=== PATIENT | female | born 1980 | race American Indian/Alaskan Native ===

== ENCOUNTER 2020-08-13 04:29 | Emergency (ER) | payer MEDICAID ==
[2020-08-13 04:58] VITALS: BP 147/96
[2020-08-13] MEDS ORDERED: diphenhydrAMINE 25 MG CAP PO ONE (06:16)
[2020-08-13] MEDS ORDERED: METOCLOPRAMIDE 10 MG TAB PO ONE (06:16)
[2020-08-13] MEDS ORDERED: dexAMETHasone 20 MG/5 ML VIAL IM ONE (06:16)
[2020-08-13] MEDS ORDERED: ACETAMINOPHEN 500 MG TAB PO ONE (06:16)
--- NOTE | 2020-08-13 06:22 | Emergency Department Report ---
ED Headache HPI - General Chief Complaint: Headache Stated Complaint: HTN/HEADACHE - History of Present Illness Initial Comments: Patient is a 40-year-old female with a history of migraine headaches who presents for a frontal h as pain is in the same pace place and intensity eadache described as squeezing and pain sharp 5/10 intermittent for the past 5 days. This is typical development of headaches for this patient. Pain is in the same place and same intensity. There is no fever, chills, nausea vomiting, lightheadedness, no photophobia, no sinus pain or drainage. Patient states out of headache medication for the past year. Patient does endorse history of hypertension controlled with lisinopril. Patient has PCP Dr. Spence Allergies/Adverse Reactions: Allergies No Known Allergies Allergy (Unverified 08/13/20 05:01) Home Medications: Ambulatory Orders Acetaminophen [Acetaminophen TAB] 1,000 mg PO Q6HR PRN #30 tablet 08/13/20 Metoclopramide [Reglan] 10 mg PO Q6H PRN #30 tablet 08/13/20 diphenhydrAMINE [Benadryl CAP] 25 mg PO Q6HR PRN #30 capsule 08/13/20 lisinopriL [Zestril TAB] 20 mg PO QDAY #30 tablet 08/13/20 ED Review of Systems ROS: Stated complaint: HTN/HEADACHE Other details as noted in HPI Constitutional: denies: chills, fever Eyes: denies: eye pain, eye discharge, vision change ENT: denies: ear pain, throat pain Respiratory: denies: cough, shortness of breath, wheezing Cardiovascular: denies: chest pain, palpitations Endocrine: no symptoms reported Gastrointestinal: as per HPI. denies: abdominal pain, nausea, vomiting Genitourinary: denies: urgency, dysuria, discharge Musculoskeletal: denies: back pain, joint swelling, arthralgia Skin: denies: rash, lesions Neurological: headache. denies: numbness, paresthesias, confusion, vertigo Psychiatric: denies: anxiety, depression Hematological/Lymphatic: denies: easy bleeding, easy bruising ED Past Medical Hx - Past Medical History Previous Medical History?: Yes Hx Psychiatric Treatment: Yes (Bipolar, Schizophrenia) Hx Asthma: Yes - Surgical History Past Surgical History?: No - Social History Smoking Status: Never Smoker Substance Use Type: None - Medications Home Medications: Home Medications Medication Instructions Recorded Confirmed Last Taken Type Acetaminophen [Acetaminophen TAB] 1,000 mg PO Q6HR PRN #30 tablet 08/13/20 Unknown Rx Metoclopramide [Reglan] 10 mg PO Q6H PRN #30 tablet 08/13/20 Unknown Rx diphenhydrAMINE [Benadryl CAP] 25 mg PO Q6HR PRN #30 capsule 08/13/20 Unknown Rx lisinopriL [Zestril TAB] 20 mg PO QDAY #30 tablet 08/13/20 Unknown Rx ED Physical Exam - General Limitations: No Limitations General appearance: alert, in no apparent distress - Head Head exam: Present: atraumatic, normocephalic - Eye Eye exam: Present: PERRL, EOMI Pupils: Present: normal accommodation - ENT ENT exam: Present: normal exam, normal orophraynx, mucous membranes moist, TM's normal bilaterally, normal external ear exam - Neck Neck exam: Present: normal inspection, full ROM. Absent: tenderness, lymphadenopathy - Respiratory Respiratory exam: Present: normal lung sounds bilaterally. Absent: respiratory distress, wheezes, stridor, chest wall tenderness - Cardiovascular Cardiovascular Exam: Present: regular rate, normal rhythm, normal heart sounds. Absent: systolic murmur, diastolic murmur, rubs, gallop - GI/Abdominal GI/Abdominal exam: Present: soft, normal bowel sounds. Absent: distended, tenderness - Rectal Rectal exam: Present: deferred - Extremities Exam Extremities exam: Present: normal inspection, full ROM. Absent: tenderness - Back Exam Back exam: Present: normal inspection, full ROM. Absent: tenderness, CVA ten derness (R), CVA tenderness (L) - Neurological Exam Neurological exam: Present: alert, oriented X3, CN II-XII intact, normal gait, reflexes normal. Absent: motor sensory deficit - Expanded Neurological Exam Expanded Patient oriented to: Present: person, place, time Speech: Present: fluid speech Cranial nerves: EOM's Intact: Normal, Gag Reflex: Normal Motor strength exam: RUE: 5, LUE: 5, RLE: 5, LLE: 5 DTR: knee (R): 2+, knee (L): 2+ Best Eye Response ([place]): (4) open spontaneously Best Motor Response ([place]): (6) obeys commands Best Verbal Response ([place]): (5) oriented [place] Total: 15 - Psychiatric Psychiatric exam: Present: normal affect, normal mood - Skin Skin exam: Present: warm, dry, intact, normal color. Absent: rash ED Course Vital Signs 08/13/20 04:43 Temperature 98.3 F Pulse Rate 67 Respiratory 16 Rate Blood Pressure 147/96 O2 Sat by Pulse 98 Oximetry ED Medical Decision Making - Medical Decision Making This is a typical headache for this patient. Pain is improved with medication given in ED. Patient is reminded to take BP medications as prescribed. Patient does have lisinopril in her possession advised to take at this time. Patient is currently alert oriented x3. Patient is amatory with steady gait. There are no other neuro deficits. Patient will be DC'd home in stable condition at this time. Will follow up with primary care doctor in 2 to 3 days. Patient will return to ED should symptoms worsen. Critical care attestation.: If time is entered above; I have spent that time in minutes in the direct care of this critically ill patient, excluding procedure time. ED Disposition Clinical Impression: Headache Qualifiers: Headache type: unspecified Headache chronicity pattern: acute headache Intractability: not intractable Qualified Code(s): R51.9 - Headache, unspecified Disposition: DC-01 TO HOME OR SELFCARE Is pt being admited?: No Does the pt Need Aspirin: No Condition: Stable Prescriptions: Acetaminophen [Acetaminophen TAB] 1,000 mg PO Q6HR PRN #30 tablet PRN Reason: Headache diphenhydrAMINE [Benadryl CAP] 25 mg PO Q6HR PRN #30 capsule PRN Reason: Headache Metoclopramide [Reglan] 10 mg PO Q6H PRN #30 tablet PRN Reason: Headache lisinopriL [Zestril TAB] 20 mg PO QDAY #30 tablet Referrals: KESHAWN KOTHARI MD [Staff Physician] - 3-5 Days Forms: Work/School Release Form(ED) Time of Disposition: 06:27
--- NOTE | 2020-08-13 06:33 | XRay Report ---
CHEST 2 VIEWS INDICATION / CLINICAL INFORMATION: cough. COMPARISON: None available. FINDINGS: SUPPORT DEVICES: None. HEART / MEDIASTINUM: No significant abnormality. LUNGS / PLEURA: There are mild hazy bilateral pulmonary opacities with mid to lower lung zone predomi nance. No pleural effusion. No pneumothorax. ADDITIONAL FINDINGS: No significant additional findings. IMPRESSION: 1. Mild hazy bilateral pulmonary opacities are nonspecific but may be seen in the setting of atypical or viral infection. Signer Name: Cherrie Carroll MD Signed: 08/13/2020 6:29 AM Workstation Name: [id number]
== END 2020-08-13 06:35 | disposition home or self-care (01) ==
LOC: ED 04:29
DX: R51.9 Headache, unspecified (principal); F25.0 Schizoaffective disorder, bipolar type; J45.909 Unspecified asthma, uncomplicated; Z79.899 Other long term (current) drug therapy
CPT/HCPCS: 71046; 96372; 99283; J1100